=== PATIENT | male | born 1945 | race Caucasian/White ===

== ENCOUNTER → 2017-07-18 | Day surgery (SDC) | payer OTHER ==
[~2017-07-18] VITALS: Ht 172.7 cm; Wt 99.3 kg
[~2017-07-18] MED LIST: ACETAMINOPHEN 1000 MG/100 ML 100 ML IV SCH; ACETAMINOPHEN/HYDROcodone 325 MG/7.5 MG TAB PO PRN; ATOR40TA16 PO; BUPIVACAINE/EPINEPHRINE 0.25% 50 ML VIAL ONE; BUPIVACAINE/EPINEPHRINE 0.5% 50 ML VIAL ONE; CHLORHEXIDINE GLUCONATE 2 % 1 PACK (2 CLOTHS) TOPICAL PRN; CIPR-9 PO; DO NOT ADM ANY ANTICOAGULANT DRUGS PRN; DOXA1TAB35 PO; DOXA1TAB36 PO; FERR325T18 PO; GABA300C5 PO; HYDR-3288 PO; HYDR-3799 PO; INSULIN HUMAN REGULAR 1,000 UNITS/10 ML VIAL SQ PRN; LACTATED RINGER'S 1000 ML IV PRN; LOSA100T2 PO; METF1000 PO; METOPROLOL TARTRATE 25 MG TAB PO PRN; MORPHINE SULFATE 4 MG/ML INJ IV PRN; NOVO7030P2 SQ; ONDANSETRON HCL 4 MG/2 ML VIAL IV PUSH PRN; PANT40TA3 PO; POVIDONE IODINE 5% (ANTISEPSIS KIT) 4 APPLICATIONS EACH NARE PRN; SODIUM CHLORID 0.9% 500 ML IV PRN; VANCOMYCIN 1000 MG/NS 250 ML ON-CALL IV SCH; VANCOMYCIN HCL 1000 MG VIAL ONE; ceFAZolin 1,000 MG/NS 100 ML IV SCH
[2017-07-18 07:29] LABS: BASOPHIL # 0.1 TH/MM3 (0-0.2); BASOPHIL % 0.9 % (0.0-2.0); EOSINOPHIL # 0.1 TH/MM3 (0-0.4); EOSINOPHIL % 1.4 % (0.0-4.0); HEMATOCRIT 36.2 % (39.0-51.0); HEMOGLOBIN 12.6 GM/DL (13.0-17.0); LYMPH % 32.9 % (9.0-44.0); LYMPHOCYTE # 2.9 TH/MM3 (1.0-4.8); MEAN CELL VOLUME 85.8 FL (80.0-100.0); MEAN CORPUSCULAR HEMOGLOBIN 29.8 PG (27.0-34.0); MEAN CORPUSCULAR HGB CONC 34.7 % (32.0-36.0); MEAN PLATELET VOLUME 9.6 FL (7.0-11.0); MONO % 8.4 % (0.0-8.0); MONOCYTE # 0.7 TH/MM3 (0-0.9); NEUT % 56.4 % (16.0-70.0); PLATELET COUNT 287 TH/MM3 (150-450); RED BLOOD COUNT 4.22 MIL/MM3 (4.50-5.90); RED CELL DISTRIBUTION WIDTH 15.1 % (11.6-17.2); WHITE BLOOD COUNT 8.8 TH/MM3 (4.0-11.0)
[2017-07-18 07:48] LABS: BICARBONATE 27.1 MEQ/L (21.0-32.0); CALCIUM 8.7 MG/DL (8.5-10.1); CREATININE 0.94 MG/DL (0.60-1.30)
--- NOTE | 2017-07-18 10:06 | HHI.PR ---
cc: Jaswant Domingo MD Immediate Post Op Note Procedure Date: Jul 18, 2017 Pre Op Diagnosis: Incisional hernia, reducible Post Op Diagnosis: Same Surgeon: Jaswant Domingo Cane Packer(s): BELINDA Gould Procedure: Incisional hernia repair with mesh Complications: None Specimen(s) removed: None Estimated blood loss: 20 ml Anesthesia: General Drains: None IVF (1000 ml) Patient to: PACU Patient Condition: Good Date/Time of Procedure: SEE SURGICAL CARE RECORD Jaswant Domingo MD Jul 18, 2017 10:06
[2017-07-18 11:00] VITALS: BP 128/59; PULSE 51; RESP 18; TEMP 97.5; O2SAT 94
--- NOTE | 2017-07-18 12:54 | EKG ---
Date Performed: 07/18/2017 Time Performed: 07:24:37 PTAGE: 71 years EKG: SINUS BRADYCARDIA WITH FIRST DEGREE AV BLOCK ABNORMAL ECG PREVIOUS TRACING : 05/05/2017 16.03 DOCTOR: Jakub Workman Interpretating Date/Time 07/18/2017 12:53:05
--- NOTE | 2017-07-19 10:53 | MP ---
cc: WILL DOMINGO M.D. DATE OF SURGERY: 07/18/2017 PROCEDURE Incisional hernia repair with mesh. 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 ANESTHESIA General endotracheal. SURGEON Dr. Domingo. RESOURCE EFFICIENCY MANAGER BELINDA Wilkerson. ESTIMATED BLOOD LOSS 20 mL. FLUIDS 1000 mL crystalloid. COMPLICATIONS None. DRAINS None. SPECIMEN None. PROCEDURE IN DETAIL The patient was taken to the operating room and placed on the operating table in the supine position. After an adequate level of general endotracheal anesthesia was achieved, the abdomen was prepped and draped in usual fashion. Time-out was taken confirming the correct patient, site and procedure to be performed. Incision was made through the patient's previous incision and lengthened slightly superiorly. Dissection was carried down to the hernia which was comprised entirely of omentum. This was taken down off of the fascia and reduced back into the abdominal cavity. The defect was opened slightly and Prolene sutures that had been placed appeared to be completely disrupted. These were removed. A 10 x 13 centimeter Bard patch was then chosen and it was placed in a subfascial plane after freshening up the edges. The mesh was fixed at multiple points with 0-Prolene suture. Care was taken to avoid deep bites so as not to catch bowel or omentum underneath the mesh. When this was completed, the fascia was closed with #1 Prolene in a simple interrupted fashion longitudinally. The remaining local anesthetic was injected into the fascia and the subcutaneous tissue closed with interrupted 3-0 Vicryl sutures. The skin was closed with 5-0 PDS in a running subcuticular fashion. The wound was dressed with Steri-Strips. Abdominal binder was applied and the patient was taken back to the recovery room in stable condition. Sponge, needle and instrument counts were reported to be correct. The patient tolerated the procedure well. MD JAVIER Trevizo/TLWade /4:22 PM /10:36 AM
== END | disposition home or self-care (01) ==
LOC: HSDC 05:43
PROVIDERS: ATTEND Surgery Trauma Surgery
DX: K43.2 Incisional hernia without obstruction or gangrene (principal); I44.0 Atrioventricular block, first degree
CPT/HCPCS: 00832; 49560; 49568; 80048; 85025; 86850; 86900; 86901; 93005; C1781; J0131; J0690; J3010; J3370; J7050; J7120

== ENCOUNTER 2017-10-14 14:48 | Emergency (ER) | payer OTHER ==
[~2017-10-14] VITALS: Ht 167.6 cm; Wt 96.5 kg
[~2017-10-14 14:48] MED LIST changes: -ACETAMINOPHEN 1000 MG/100 ML 100 ML IV SCH; -ACETAMINOPHEN/HYDROcodone 325 MG/7.5 MG TAB PO PRN; -BUPIVACAINE/EPINEPHRINE 0.25% 50 ML VIAL ONE; -BUPIVACAINE/EPINEPHRINE 0.5% 50 ML VIAL ONE; -CHLORHEXIDINE GLUCONATE 2 % 1 PACK (2 CLOTHS) TOPICAL PRN; -CIPR-9 PO; -DO NOT ADM ANY ANTICOAGULANT DRUGS PRN; -DOXA1TAB36 PO; -INSULIN HUMAN REGULAR 1,000 UNITS/10 ML VIAL SQ PRN; -LACTATED RINGER'S 1000 ML IV PRN; -METOPROLOL TARTRATE 25 MG TAB PO PRN; -MORPHINE SULFATE 4 MG/ML INJ IV PRN; -ONDANSETRON HCL 4 MG/2 ML VIAL IV PUSH PRN; -POVIDONE IODINE 5% (ANTISEPSIS KIT) 4 APPLICATIONS EACH NARE PRN; -SODIUM CHLORID 0.9% 500 ML IV PRN; -VANCOMYCIN 1000 MG/NS 250 ML ON-CALL IV SCH; -VANCOMYCIN HCL 1000 MG VIAL ONE; -ceFAZolin 1,000 MG/NS 100 ML IV SCH
[2017-10-14 14:59] VITALS: BP 191/82; PULSE 58; RESP 18; TEMP 97.9; O2SAT 96
[2017-10-14] MEDS ORDERED: MECLIZINE HCL 25 MG TAB PO ONE (17:15)
[2017-10-14 17:23] LABS: AUTOMATED NEUTROPHIL # 4.6 TH/MM3 (1.8-7.7); BASOPHIL # 0.1 TH/MM3 (0-0.2); BASOPHIL % 0.8 % (0.0-2.0); EOSINOPHIL # 0.1 TH/MM3 (0-0.4); EOSINOPHIL % 0.9 % (0.0-4.0); HEMATOCRIT 39.3 % (39.0-51.0); HEMOGLOBIN 13.5 GM/DL (13.0-17.0); LYMPH % 42.3 % (9.0-44.0); LYMPHOCYTE # 4.1 TH/MM3 (1.0-4.8); MEAN CORPUSCULAR HEMOGLOBIN 29.9 PG (27.0-34.0); MEAN CORPUSCULAR HGB CONC 34.4 % (32.0-36.0); MEAN PLATELET VOLUME 9.7 FL (7.0-11.0); MONO % 7.7 % (0.0-8.0); MONOCYTE # 0.7 TH/MM3 (0-0.9); NEUT % 48.3 % (16.0-70.0); PLATELET COUNT 345 TH/MM3 (150-450); RED BLOOD COUNT 4.52 MIL/MM3 (4.50-5.90); RED CELL DISTRIBUTION WIDTH 14.6 % (11.6-17.2); WHITE BLOOD COUNT 9.6 TH/MM3 (4.0-11.0)
[2017-10-14 17:38] VITALS: BP 192/81; PULSE 45; RESP 14; O2SAT 96
[2017-10-14 17:47] LABS: ALKALINE PHOSPHATASE 108 U/L (45-117); TOTAL BILIRUBIN ADULT 0.3 MG/DL (0.2-1.0); TOTAL PROTEIN 7.5 GM/DL (6.4-8.2); TROPONIN I LESS THAN 0.02 NG/ML (0.02-0.05)
[2017-10-14 17:50] LABS: ALBUMIN 3.9 GM/DL (3.4-5.0); ALT (GPT) 58 U/L (12-78); AST (GOT) 48 U/L (15-37); BICARBONATE 23.3 MEQ/L (21.0-32.0); BLOOD UREA NITROGEN 16 MG/DL (7-18); CALCIUM 8.8 MG/DL (8.5-10.1); CHLORIDE 107 MEQ/L (98-107); CREATININE 1.24 MG/DL (0.60-1.30); GLOMERULAR FILTRATION RATE 57 ML/MIN (>89); GLUCOSE,RANDOM 129 MG/DL (74-106); SODIUM (NA) 140 MEQ/L (136-145)
[2017-10-14] MEDS ORDERED: hydrALAZINE HCL 20 MG/ML VIAL IV PUSH ONE (18:15)
[2017-10-14 18:33] VITALS: BP 190/77; PULSE 41; RESP 16; O2SAT 95
[2017-10-14 18:56] VITALS: BP 185/85; PULSE 47
--- NOTE | 2017-10-14 18:58 | RADRPT ---
EXAM DATE/TIME: 10/14/2017 18:41 [facility] COMPARISON: No previous studies available for comparison. INDICATIONS : Hearing changes in right ear for one month. RADIATION DOSE: 36.72 CTDIvol (mGy) MEDICAL HISTORY : Hypertension. diabetes SURGICAL HISTORY : Splenectomy. ENCOUNTER: Initial ACUITY: 1 day PAIN SCALE: 0/10 LOCATION: Bilateral head TECHNIQUE: Multiple contiguous axial images were obtained of the head. Using automated exposure control and adj ustment of the mA and/or kV according to patient size, radiation dose was kept as low as reasonably a chievable to obtain optimal diagnostic quality images. DICOM format image data is available electro nically for review and comparison. FINDINGS: CEREBRUM: The ventricles are normal for age. No evidence of midline shift, mass lesion, hemorrhage or acute in farction. No extra-axial fluid collections are seen. POSTERIOR FOSSA: The cerebellum and brainstem are intact. The 4th ventricle is midline. The cerebellopontine angle i s unremarkable. EXTRACRANIAL: The visualized portion of the orbits is intact. SKULL: The calvaria is intact. No evidence of skull fracture. There is minimal calcific density adjacent to the inner table at the left normal suture region without mass effect. This could be from dural calci fication versus a thin calcified meningioma without mass effect. CONCLUSION: No acute disease. Julio C Edmondson MD on October 14, 2017 at 18:55 Board Certified Radiologist. This report was verified electronically.
[2017-10-14] MEDS ORDERED: MECL-62 PO (19:22)
--- NOTE | 2017-10-14 19:22 | PD ---
HPI Chief Complaint: Pain: Acute or Chronic Time Seen by Provider: 16:31 Travel History International Travel<30 days: No Contact w/Intl Traveler<30days: No Traveled to known affect area: No History of Present Illness HPI Patient is a 72-year-old male who comes in complaining of a swishing in his ears. He says this has been going on for the past 4 weeks. He had a carotid Doppler performed because of this and he says it was normal. He says is keeping him from sleeping and he has a slight headache. He also reports that he has been under a lot of stress lately because his brother recently . He denies any chest pain or shortness of breath. He is worried about his blood pressure staying high. He denies any blurred vision. He says that the swishing sound is positional and is worse when he moves his head. Severity is mild to moderate. PFSH Past Medical History Hx Anticoagulant Therapy: Yes (ASPIRIN 81MG) Arthritis: No Asthma: No Autoimmune Disease: No Heart Rhythm Problems: Yes (AFIB) Cancer: No Cardiac Catheterization: Yes Cardiovascular Problems: Yes (X1 STENT) High Cholesterol: Yes Chemotherapy: No Chest Pain: No Congestive Heart Failure: No COPD: No Cerebrovascular Accident: No Diabetes: Yes Patient Takes Glucophage: No Diminished Hearing: No Endocrine: Yes Gastrointestinal Disorders: Yes (GERD) GERD: No Genitourinary: No Hepatitis: No Hiatal Hernia: No Hypertension: Yes Immune Disorder: No Kidney Stones: No Musculoskeletal: Yes (arthritis) Neurologic: Yes (neuropathy) Psychiatric: No Reproductive: No Respiratory: No Migraines: No Radiation Therapy: No Renal Failure: No Seizures: No Sickle Cell Disease: No Sleep Apnea: Yes Thyroid Disease: No Ulcer: No Past Surgical History Abdominal Surgery: Yes (Splenectomy) AICD: No Arteriovenous Shunt: No Body Medical Devices: STENTS CARDIAC, PT DOES NOT KNOW HOW MANY Cardiac Surgery: Yes (STENT x 1 cardiac) Coronary Stent: Yes Ear Surgery: No Endocrine Surgery: No Eye Surgery: No Genitourinary Surgery: No Gynecologic Surgery: No Insulin Pump: No Joint Replacement: No Oral Surgery: No Pacemaker: No Thoracic Surgery: No Social History Alcohol Use: Yes (DAILY 3 SHOTS) Tobacco Use: No Substance Use: No Allergies-Medications (Allergen,Severity, Reaction): Coded Allergies: No Known Allergies (Verified Allergy, Unknown, 07/18/17) Reported Meds & Prescriptions Reported Meds & Active Scripts Active [place] (Hydrocodone-Acetaminophen) 7.5-325 mg Tab 1-2 Tab PO Q4H PRN Reported Doxazosin (Doxazosin Mesylate) 2 Mg Tab 2 Mg PO DAILY Gabapentin 300 Mg Cap 300 Mg PO DAILY PRN Ferrous Sulfate 325 Mg (65 Mg Iron) Tablet 325 Mg PO TIDPC Pantoprazole (Pantoprazole Sodium) 40 Mg Tab 40 Mg PO DAILY Metformin (Metformin HCl) 1,000 Mg Tab 1,000 Mg PO BIDPC Losartan-Hydrochlorothiazide 100-25 Mg Tab 1 Tab PO DAILY Novolin 70-30 Inj (Insulin Human Isoph/Insulin Regular) 1,000 Unit/10 Ml Vial 10 Units SQ BID Hydralazine HCl 25 Mg Tablet 25 Mg PO TID Atorvastatin (Atorvastatin Calcium) 40 Mg Tab 40 Mg PO HS Review of Systems Except as stated in HPI: all other systems reviewed are Neg General / Constitutional: No: Fever, Chills Eyes: No: Blurred Vision HENT: Positive: Headaches Cardiovascular: No: Chest Pain or Discomfort Respiratory: No: Shortness of Breath Gastrointestinal: No: Nausea, Vomiting Genitourinary: No: Dysuria Musculoskeletal: No: Myalgias, Edema Skin: No Rash, No Change in Pigmentation Neurologic: No: Weakness Physical Exam Narrative GENERAL: Awake and alert, in no acute distress. SKIN: Focused skin assessment warm/dry. No wounds or signs of infection. HEAD: Atraumatic. Normocephalic. EYES: Pupils equal and round. No scleral icterus. Extraocular movements intact. ENT: Mucous membranes pink and moist. No fluid in the ears or signs of infection. NECK: Trachea midline. No JVD. CARDIOVASCULAR: Regular rate and rhythm. No murmur appreciated. RESPIRATORY: No accessory muscle use. Clear to auscultation. Breath sounds equal bilaterally. GASTROINTESTINAL: Abdomen soft, non-tender, nondistended. MUSCULOSKELETAL: No obvious deformities. No clubbing. No cyanosis. No edema. NEUROLOGICAL: Awake and alert. No obvious cranial nerve deficits. Motor grossly within normal limits. Normal speech. PSYCHIATRIC: Appropriate mood and affect; insight and judgment normal. Data Data Last Documented VS Vital Signs Date Time Temp Pulse Resp B/P (MAP) Pulse Ox O2 Delivery O2 Flow Rate FiO2 10/14/17 18:56 47 185/85 (118) 10/14/17 18:33 16 95 10/14/17 17:38 Room Air 10/14/17 14:59 97.9 Orders Orders Iv Access Insert/Monitor (10/14/17 17:01) Complete Blood Count With Diff (10/14/17 17:01) Comprehensive Metabolic Panel (10/14/17 17:01) Troponin I (10/14/17 17:01) Electrocardiogram (10/14/17 ) Meclizine (Antivert) (10/14/17 17:15) Ct Brain W/O Iv Contrast(Rout) (10/14/17 ) Hydralazine Inj (Apresoline Inj) (10/14/17 18:15) Labs Laboratory Tests Test 10/14/17 16:55 White Blood Count 9.6 TH/MM3 Red Blood Count 4.52 MIL/MM3 Hemoglobin 13.5 GM/DL Hematocrit 39.3 % Mean Corpuscular Volume 87.0 FL Mean Corpuscular Hemoglobin 29.9 PG Mean Corpuscular Hemoglobin Concent 34.4 % Red Cell Distribution Width 14.6 % Platelet Count 345 TH/MM3 Mean Platelet Volume 9.7 FL Neutrophils (%) (Auto) 48.3 % Lymphocytes (%) (Auto) 42.3 % Monocytes (%) (Auto) 7.7 % Eosinophils (%) (Auto) 0.9 % Basophils (%) (Auto) 0.8 % Neutrophils # (Auto) 4.6 TH/MM3 Lymphocytes # (Auto) 4.1 TH/MM3 Monocytes # (Auto) 0.7 TH/MM3 Eosinophils # (Auto) 0.1 TH/MM3 Basophils # (Auto) 0.1 TH/MM3 CBC Comment DIFF FINAL Differential Comment Blood Urea Nitrogen 16 MG/DL Creatinine 1.24 MG/DL Random Glucose 129 MG/DL Total Protein 7.5 GM/DL Albumin 3.9 GM/DL Calcium Level 8.8 MG/DL Alkaline Phosphatase 108 U/L Aspartate Amino Transf (AST/SGOT) 48 U/L Alanine Aminotransferase (ALT/SGPT) 58 U/L Total Bilirubin 0.3 MG/DL Sodium Level 140 MEQ/L Potassium Level 4.3 MEQ/L Chloride Level 107 MEQ/L Carbon Dioxide Level 23.3 MEQ/L Anion Gap 10 MEQ/L Estimat Glomerular Filtration Rate 57 ML/MIN Troponin I LESS THAN 0.02 NG/ML MDM Medical Decision Making Medical Screen Exam Complete: Yes Emergency Medical Condition: Yes Interpretation(s) ECG shows normal sinus rhythm, no ST elevation or depression. Differential Diagnosis Vertigo versus ringing in the ears versus migraine versus anxiety Narrative Course Patient is a 72-year-old male who comes in complaining of a swishing in his ears. Exam shows no acute abnormalities. IV established, labs sent. Labs show no acute abnormalities. Patient given meclizine and hydralazine. Reports some improvement of his symptoms. CT head performed shows no acute abnormalities. Patient advised to follow-up with ENT. Advised follow-up with his primary doctor. Advised to return to the ED as needed for any worsening symptoms. Given a prescription for meclizine. Diagnosis Primary Impression: Hearing difficulty Qualified Codes: H91.93 - Unspecified hearing loss, bilateral Referrals: Sharad France MD call for appointment Patient Instructions: Benign Paroxysmal Positional Vertigo (ED), Chronic Hypertension (ED), General Instructions, Tinnitus (ED) Additional Instructions: Follow up with ENT. Take Meclizine if it helps with your symptoms. Follow up with your primary doctor. Return to the ED as needed for any worsening symptoms. Scripts Meclizine (Meclizine) 25 Mg Tab 25 MG PO TID Y for VERTIGO for 5 Days, TAB 0 Refills Prov: Salma Forrest MD 10/14/17 Disposition: 01 DISCHARGE HOME Condition: Stable Salma Forrest MD Oct 14, 2017 19:22
--- NOTE | 2017-10-15 10:35 | EKG ---
Date Performed: 10/14/2017 Time Performed: 17:33:33 PTAGE: 72 years EKG: SINUS BRADYCARDIA WITH FIRST DEGREE AV BLOCK BORDERLINE LEFT AXIS DEVIATION NONSPECIFIC T-W AVE ABNORMALITY ABNORMAL ECG Since the PREVIOUS TRACING , no significant change noted PREVIOUS TRACIN07/18/2017 07.24 DOCTOR: Chris So Interpretating Date/Time 10/15/2017 10:31:49
== END 2017-10-14 19:35 | disposition home or self-care (01) ==
LOC: NEPE 14:48
DX: H91.93 Unspecified hearing loss, bilateral (principal); I48.91 Unspecified atrial fibrillation; R00.1 Bradycardia, unspecified; I44.0 Atrioventricular block, first degree; R94.31 Abnormal electrocardiogram [ECG] [EKG]; E78.00 Pure hypercholesterolemia, unspecified; K21.9 Gastro-esophageal reflux disease without esophagitis; I10 Essential (primary) hypertension; E11.40 Type 2 diabetes mellitus with diabetic neuropathy, unspecified
CPT/HCPCS: 70450; 80053; 84484; 85025; 93005; 96374; 99285; J0360